=== PATIENT | female | born 1950 | race Caucasian/White ===

== ENCOUNTER → 2019-07-13 | Outpatient (CLI) | payer MEDICARE ==
--- NOTE | 2019-07-14 11:22 | CT ---
EXAMINATION TYPE: CT abdomen pelvis w con DATE OF EXAM: 07/13/2019 COMPARISON: 06/06/2010 INDICATION: Abdominal pain DLP: 1574 mGycm, Automated exposure control for dose reduction was used. CONTRAST: 100 mL of Isovue 300. Study performed with Oral Contrast TECHNIQUE: Axial images were obtained from above the diaphragm to the pubic rami in the axial plane a t 5 mm thick sections. Reconstructed images are reviewed on the computer in the coronal plane. FINDINGS: Limited CT sections are obtained the lung bases. The lung bases are clear. CT ABDOMEN: Liver: Some mild fatty infiltration of liver medially present. No discrete masses or cysts are eviden t. Spleen: Normal Pancreas: Normal Adrenal glands: The adrenal glands are normal. Gallbladder: Normal Kidneys: No masses are evident. No hydronephrosis is present. No cysts are present. Delayed images were obtained through the kidneys, which remain unremarkable. Aorta: Vascular calcification is within the aorta. Inferior vena cava: Normal. CT PELVIS: Loops of bowel within the abdomen and pelvis are normal. There are loops of bowel which are incom pletely distended or lack oral contrast limiting their evaluation. Appendix: Normal as visualized. Urinary bladder: Normal. Genitourinary structures: Uterus appears normal. There is a surgical clip adjacent to the right fall opian tube. No free fluid is present. Osseous structures: There may be some lucency within the left pedicle and posterior lateral vertebral body of T11. Consider correlation with bone scan. IMPRESSIONS: 1. Some left pedicle lucency at T11. Correlate with bone scan findings. 2. No suspicious abnormality to account for abdominal pain.
== END | disposition home or self-care (01) ==
LOC: RADCTMAIN 14:34
PROVIDERS: ATTEND Family Medicine
DX: R10.84 Generalized abdominal pain (principal)
CPT/HCPCS: 82565; 84520; 74177; 36415; Q9967

== ENCOUNTER → 2019-11-16 | Outpatient (CLI) | payer MEDICARE ==
[~2019-11-16] MED LIST: REGADENOSON 0.4 MG/5 ML SYRINGE IV ONE
--- NOTE | 2019-11-16 12:46 | EST ---
EXERCISE STRESS AGE: 69 SEX: F HT: 64" WT: 185 PROTOCOL: Lexiscan Cardiolite Stress Test HEART RATE REST: 57 BLOOD PRESSURE REST: 126/69 MAXIMUM HEART RATE ACHIEVED: 69 MAXIMUM BLOOD PRESSURE: 126/69 INDICATIONS: Chest pain. CLINICAL INFORMATION: Baseline EKG shows sinus rhythm, normal axis, normal intervals. Patient was given intravenous Lexiscan as per protocol. Did not have chest pain or diagnostic ST-segment depression. CONCLUSION: 1. Negative stress test by EKG criteria. 2. Cardiolite portion of the stress test will be reported separately. MMODL / IJN: [id number] /
--- NOTE | 2019-11-16 13:45 | NM ---
EXAMINATION TYPE: NM stress lexiscan cardiolite DATE OF EXAM: 11/16/2019 COMPARISON: NONE HISTORY: Chest pain TECHNIQUE: After the intravenous administration of 10.2 mCi Tc 99m Sestamibi - Cardiolite resting SP ECT images acquired 45 minutes post injection. The patient received 0.4mg Lexiscan, 25.3 mCi Tc 99m Sestamibi - Stress images obtained [address] injection FINDINGS: Review of stress and rest SPECT images demonstrates no a fixed perfusion defect of the septal wall in the mid segment with surrounding yesenia-infarct ischemia as there is a larger defect on stress than re st imaging. Gated analysis shows normal wall motion with an estimated left ventricular ejection frac tion of 70 %. 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
== END | disposition home or self-care (01) ==
LOC: RADNMMAIN 08:20
PROVIDERS: ATTEND Family Medicine
DX: I25.89 Other forms of chronic ischemic heart disease (principal); I21.A9 Other myocardial infarction type; I16.0 Hypertensive urgency
CPT/HCPCS: 93017; 78452; A9500; J2785

== ENCOUNTER → 2020-04-25 | Outpatient (CLI) | payer MEDICARE ==
--- NOTE | 2020-04-29 08:25 | MM ---
Reason for exam: screening (asymptomatic). Last mammogram was performed 3 years and 11 months ago. History: Patient is postmenopausal. Took estrogen for 1 year beginning at age 54. Took progesterone for 1 year beginning at age 54. Physical Findings: A clinical breast exam by your physician is recommended on an annual basis and results should be correlated with mammographic findings. MG 3D Screening Mammo W/Cad Bilateral CC and MLO view(s) were taken. Prior study comparison: May 25, 2016, right breast MG 3d diag mammo w/cad RT. October 04, 2015, right breast MG 3d work up w/cad RT. Finding #1: There is a typically benign circumscribed oval mass in the right breast. Finding #2: There are typically benign vascular, round, skin calcifications in both breasts. No significant changes in finding since May 25, 2016 and October 04, 2015. ASSESSMENT: Benign, BI-RAD 2 RECOMMENDATION: Routine screening mammogram of both breasts in 1 year.
== END | disposition home or self-care (01) ==
LOC: RADMAMWWP 13:59
PROVIDERS: ATTEND Family Medicine
DX: Z12.31 Encounter for screening mammogram for malignant neoplasm of breast (principal)
CPT/HCPCS: 77063; 77067

== ENCOUNTER → 2021-06-25 | Outpatient (CLI) | payer MEDICARE ==
[~2021-06-25] MED LIST changes: -REGADENOSON 0.4 MG/5 ML SYRINGE IV ONE; +REGADENOSON 0.4 MG/5 ML SYRINGE IV PRN
--- NOTE | 2021-06-25 14:21 | EST ---
EXERCISE STRESS AGE: 70 SEX: F HT: 5'4" WT: 185 lbs PROTOCOL: Lexiscan STAGE: NA DURATION OF EXERCISE: 5 minutes HEART RATE REST: 63 BLOOD PRESSURE REST: 127/73 MAXIMUM HEART RATE ACHIEVED: 79 MAXIMUM BLOOD PRESSURE: 129/66 85% MPHR: 129 100% MPHR: 152 METS: NA RESULTS: Baseline EKG revealed normal sinus rhythm with minor nonspecific ST abnormality. With Lexiscan administration, heart rate went up from 63-79 beats per minute. Blood pressure changed from 127/73 to 129/66. The patient had isolated PVCs. EKG remained unremarkable but inconclusive. By EKG criteria, this is an inclusive Lexiscan stress test because of minor resting EKG changes. The nuclear scan results which are more pertinent, will be reported by the radiologist. MMOLIVIAL / IJN: [id number] /
--- NOTE | 2021-06-25 14:34 | NM ---
EXAMINATION TYPE: NM stress lexiscan cardiolite DATE OF EXAM: 06/25/2021 COMPARISON: NONE HISTORY: Chest pain TECHNIQUE: After the intravenous administration of 9.5 mCi Tc 99m Sestamibi - Cardiolite resting SPE CT images acquired 45 minutes post injection. At peak stress 24.9 mCi Tc 99m Sestamibi - Stress images obtained 35 minutes post injection The patient was stressed with 0.4mg Lexiscan. FINDINGS: There is a large defect from the cardiac apex to nearly the cardiac base along the lateral wall. This is evident on the stress images but not evident on the resting images. Polar maps correlate with the SPECT imaging. No fixed defects on Spect images. There is mild dyskinesia along the lateral wall. Ejection fraction is calculated to be 60 % is normal. IMPRESSION: 1. Large stress-induced ischemic change along the lateral wall. Correlate with EKG changes.
== END | disposition home or self-care (01) ==
LOC: RADNMMAIN 08:13
PROVIDERS: ATTEND Family Medicine
DX: I16.0 Hypertensive urgency (principal); R07.89 Other chest pain
CPT/HCPCS: 93017; 78452; A9500; J2785

== ENCOUNTER → 2021-07-02 | Outpatient (CLI) | payer MEDICARE ==
[2021-07-02 12:12] LABS: HGB 13.9 gm/dL (11.4-16.0); MCHC 33.2 g/dL (31.0-37.0); MCV 93.3 fL (80.0-100.0); Mean Platelet Volume 7.5; Platelet Count 201 k/uL (150-450); RDW 12.8 % (11.5-15.5); WBC 8.2 k/uL (3.8-10.6)
[2021-07-02 12:21] LABS: Potassium 4.5 mmol/L (3.5-5.1)
== END | disposition home or self-care (01) ==
LOC: LABPAT 11:24
PROVIDERS: ATTEND Internal Medicine Cardiovascular Disease
DX: Z01.812 Encounter for preprocedural laboratory examination (principal); R06.02 Shortness of breath
CPT/HCPCS: 36415; 80051; 82565; 84520; 85027

== ENCOUNTER 2021-07-07 07:50 | Day surgery (SDC) | payer MEDICARE ==
[2021-07-03 18:04] VITALS: BMI 32.8
[~2021-07-07 07:50] MED LIST changes: +ALPRAZolam 0.25 MG TAB PO PRN; +ALPRAZolam 0.5 MG TAB PO PRN; +ASPIRIN 325 MG TAB PO STA; +ATORVASTATIN 80 MG TAB PO STA; +NITROGLYCERIN SL TABS 0.4 MG TAB SUBLINGUAL PRN; -REGADENOSON 0.4 MG/5 ML SYRINGE IV PRN; +SODIUM CHLORIDE 0.9% 1,000 ML in EMPTY BAG 1 BAG IV SCH
[2021-07-07 08:25] LABS: Glucose,Whole Blood 131 mg/dL (75-99)
[2021-07-07 08:35] VITALS: TEMP 98.3
[2021-07-07] MEDS ORDERED: METOPROLOL TARTRATE 50 MG TAB PO STA (08:36)
[2021-07-07] MEDS ORDERED: ATORVASTATIN 40 MG TAB PO STA (08:36)
[2021-07-07] MEDS ORDERED: LIDOCAINE 1% INJ 10MG/ML (20 ML MDV) ONE (08:40)
[2021-07-07] MEDS ORDERED: VERAPAMIL 2.5 MG/ML 2 ML AMP ONE (09:47)
[2021-07-07] MEDS ORDERED: fentaNYL (PF) 50 MCG/ML 2 ML AMP ONE (09:47)
[2021-07-07] MEDS ORDERED: fentaNYL (PF) 50 MCG/ML 2 ML AMP IVP ONE (09:50)
[2021-07-07] MEDS: MIDAZOLAM 2 MG/2 ML VIAL IVP ONE ×2 (09:50→10:00)
[2021-07-07] MEDS ORDERED: LIDOCAINE 1% INJ 10MG/ML (20 ML MDV) SQ ONE (09:51)
[2021-07-07] MEDS ORDERED: VERAPAMIL SYRINGE (5 MG/10 ML) INTRAARTER ONE (09:57)
[2021-07-07] MEDS ORDERED: HEPARIN SODIUM 1,000 UN/ML (10ML VL) ONE (09:58)
[2021-07-07] MEDS ORDERED: HEPARIN SODIUM 1,000 UN/ML (10ML VL) IV ONE (09:59)
[2021-07-07] MEDS ORDERED: IOPAMIDOL-370 125ML BTL INJ ONE (10:06)
[2021-07-07] MEDS ORDERED: RX INFO: IV CONTRAST WAS GIVEN 1 EACH MISC MISCELLANE PRN (10:21)
[2021-07-07] MEDS ORDERED: SODIUM CHLORIDE 0.9% 1,000 ML IV SCH (10:30)
--- NOTE | 2021-07-07 11:06 | CC ---
CARDIAC CATHETERIZATION REPORT INDICATION: Exertional fatigue and shortness of breath with an abnormal stress test showing ischemia involving lateral wall. PROCEDURE NOTE: After obtaining informed consent, left heart catheterization and coronary angiogram were performed via the right radial artery. Patient tolerated the procedure well without any obvious immediate complications. A TR band was applied at the end of the procedure with the standard care and standard precautions. After the TR band was applied, pulse ox was measured and was documented to be 97%. Patient received verapamil and IV heparin to prevent and thrombosis. FINDINGS: HEMODYNAMICS: Left ventricular end-diastolic pressure is 7 mm. There is no significant gradient across the aortic valve. LEFT VENTRICULOGRAM: Left ventriculogram was not presented. ANGIOGRAPHIC DATA: Left main coronary artery. Left main coronary artery is a normal-sized vessel and is free of stenosis. It divides into left anterior descending coronary artery and circumflex coronary artery. LAD and its branches, circumflex coronary artery and its branches are free of significant stenosis. Right coronary artery is a small nondominant vessel and is free of significant disease. CONCLUSIONS: 1. No significant obstructive CAD. 2. Normal left ventricular end-diastolic pressures. PLAN: I reviewed angiographic data with the patient and told her that her stress test is a false positive stress test and her symptoms are probably noncardiac in origin. Patient will work on risk factor modification. MMODL / IJN: [id number] /
--- NOTE | 2021-07-07 11:09 | LTR ---
July 07, 2021 To: Dr. Blanca Re: Roro Carmen (54) Dear Chris, I performed cardiac catheterization on Roro. A detailed catheterization note is enclosed for your records. In brief, cardiac catheterization revealed normal coronary arteries and normal left ventricular end-diastolic pressure. Her symptoms are probably are non-ischemic in etiology, and stress test is a false-positive stress test. Thank you for giving me the privilege of participating in the care of this pleasant lady. Sincerely, Fransisco Ji M.D. VIBHA / ANDREY: [id number] /
[2021-07-07 14:10] VITALS: BP 100/55; PULSE 64; RESP 16
== END 2021-07-07 14:48 | disposition home or self-care (01) ==
LOC: CATHCVL 07:50
PROVIDERS: ATTEND Internal Medicine Cardiovascular Disease
DX: R94.39 Abnormal result of other cardiovascular function study (principal); Z20.822 Contact with and (suspected) exposure to COVID-19; R06.02 Shortness of breath; R53.83 Other fatigue; E11.9 Type 2 diabetes mellitus without complications; I10 Essential (primary) hypertension; Z82.49 Family history of ischemic heart disease and other diseases of the circulatory system; Z79.899 Other long term (current) drug therapy; Z79.82 Long term (current) use of aspirin; E78.2 Mixed hyperlipidemia; Z79.84 Long term (current) use of oral hypoglycemic drugs
CPT/HCPCS: 93458; 87635; C1894 ×2; C1769; J2250; J2001; J3010; J1644; Q9967

== ENCOUNTER → 2021-09-09 | Outpatient (CLI) | payer MEDICARE ==
--- NOTE | 2021-09-11 14:06 | MM ---
Reason for exam: screening (asymptomatic). Last mammogram was performed 1 year and 4 months ago. History: Patient is postmenopausal. Took estrogen for 1 year beginning at age 54. Took progesterone for 1 year beginning at age 54. Physical Findings: A clinical breast exam by your physician is recommended on an annual basis and results should be correlated with mammographic findings. MG 3D Screening Mammo W/Cad Bilateral CC and MLO view(s) were taken. Prior study comparison: April 25, 2020, bilateral MG 3d screening mammo w/cad. May 25, 2016, right breast MG 3d diag mammo w/cad RT. The breast tissue is heterogeneously dense. This may lower the sensitivity of mammography. No significant changes when compared with prior studies. ASSESSMENT: Benign, BI-RAD 2 RECOMMENDATION: Routine screening mammogram of both breasts in 1 year.
== END | disposition home or self-care (01) ==
LOC: RADMAMWWP 10:52
PROVIDERS: ATTEND Family Medicine
DX: Z12.31 Encounter for screening mammogram for malignant neoplasm of breast (principal); Z78.0 Asymptomatic menopausal state
CPT/HCPCS: 77063; 77067

== ENCOUNTER → 2022-12-10 | Outpatient (CLI) | payer MEDICARE ==
--- NOTE | 2022-12-11 09:04 | MM ---
Reason for Exam: Screening (asymptomatic). Last mammogram was performed 1 year(s) and 3 month(s) ago. Patient History: Menarche at age 16. First Full-Term at age 23. Postmenopausal. Estrogen for 1 year from age 54 until age 55. Progesterone for 1 year from age 54 until age 55. Risk Values: Sandra 5 year model risk: 1.4%. NCI Lifetime model risk: 4.1%. Prior Study Comparison: 05/25/2016 Right Diagnostic Mammogram, [facility]. 04/25/2020 Bilateral Screening Mammogram, [facility]. 09/09/2021 Bilateral Screening Mammogram, [facility]. Tissue Density: The breast tissue is heterogeneously dense. This may lower the sensitivity of mammography. Findings: Analyzed By CAD. There are scattered small benign-appearing round and punctate calcifications bilaterally redemonstrated. Benign-appearing vascular calcification in the right breast is redemonstrated. There is no suspicious new group of microcalcifications or new suspicious mass in either breast. Overall Assessment: Benign, BI-RAD 2 Management: Screening Mammogram of both breasts in 1 year. Some advise bilateral breast ultrasound surveillance in patients with background dense tissue. A clinical breast exam by your physician is recommended on an annual basis and results should be correlated with mammographic findings. Electronically signed and approved by: Jermain Jeronimo M.D.
== END | disposition home or self-care (01) ==
LOC: RADMAMWWP 13:48
PROVIDERS: ATTEND Family Medicine
DX: Z12.31 Encounter for screening mammogram for malignant neoplasm of breast (principal); Z78.0 Asymptomatic menopausal state
CPT/HCPCS: 77063; 77067

== ENCOUNTER → 2023-12-16 | Outpatient (CLI) | payer MEDICARE ==
--- NOTE | 2023-12-16 13:05 | MM ---
Reason for Exam: Screening (asymptomatic). Last mammogram was performed 1 year(s) and 1 month(s) ago. Patient History: Menarche at age 16. First Full-Term at age 23. Postmenopausal. Patient has history of breast feeding. Estrogen for 1 year from age 54 until age 55. Progesterone for 1 year from age 54 until age 55. Risk Values: Sandra 5 year model risk: 1.4%. NCI Lifetime model risk: 4.0%. Prior Study Comparison: 09/23/2015 Bilateral Screening Mammogram, [facility]. 10/04/2015 Right Diagnostic Mammogram, [facility]. 05/25/2016 Right Diagnostic Mammogram, [facility]. 04/25/2020 Bilateral Screening Mammogram, [facility]. 09/09/2021 Bilateral Screening Mammogram, [facility]. 12/10/2022 Bilateral MG 3D screening mammo w/cad, [facility]. Tissue Density: The breasts are heterogeneously dense, which may obscure small masses. Findings: Analyzed By CAD. There is no suspicious group of microcalcifications or new suspicious mass in either breast. Overall Assessment: Benign, BI-RAD 2 Management: Screening Mammogram of both breasts in 1 year. . Patient should continue monthly self-breast exams. A clinical breast exam by your physician is recommended on an annual basis. This exam should not preclude additional follow-up of suspicious palpable abnormalities. Note on Sandra scores and lifetime risk: 1. A Sandra score greater than 3% is considered moderate risk. If this is the case, consider specialist referral to assess eligibility for a risk reducing agent. 2. If overall lifetime risk for the development of breast cancer is 20% or higher, the patient may qualify for future screening with alternating mammogram and breast MRI. Electronically signed and approved by: Vamshi Davies M.D. Radiologis
== END | disposition home or self-care (01) ==
LOC: RADMAMWWP 11:07
PROVIDERS: ATTEND Family Medicine
DX: Z12.31 Encounter for screening mammogram for malignant neoplasm of breast (principal); Z78.0 Asymptomatic menopausal state
CPT/HCPCS: 77063; 77067

== ENCOUNTER → 2024-04-27 | Outpatient (CLI) | payer MEDICARE | END | disposition home or self-care (01) | LOC: LABPRL 14:10 | PROVIDERS: ATTEND Family Medicine | DX: Z00.00 Encounter for general adult medical examination without abnormal findings (principal); E11.9 Type 2 diabetes mellitus without complications; E03.9 Hypothyroidism, unspecified | CPT/HCPCS: 80053; 80061; 83036; 84443; 84481; 85025 ==

== ENCOUNTER → 2024-09-04 | Outpatient (CLI) | payer MEDICARE ==
[2024-09-04 19:35] LABS: Microalbumin Creatinine Ratio <15 mg/g Cr (0-30); Urine Creatinine 81.1 mg/dL (28.0-217.0)
[2024-09-04 19:45] LABS: BUN/Creat Ratio 20.75 Ratio (12.00-20.00); Blood Urea Nitrogen 16.6 mg/dL (9.0-27.0); Chol/HDL Ratio 2.63 Ratio; Glucose 122 mg/dL (70-110); LDL Cholesterol,Calculated 67.3 mg/dL (0.0-131.0)
[2024-09-04 19:46] LABS: ALT 25 U/L (8-44); AST 21 U/L (13-35); Albumin 4.3 g/dL (3.8-4.9); Albumin/Globulin Ratio 1.72 Ratio (1.60-3.17); Alkaline Phosphatase 75 U/L (41-126); Calcium 9.6 mg/dL (8.7-10.3); Carbon Dioxide 27.1 mmol/L (21.6-31.8); Chloride 103 mmol/L (96-109); Globulin 2.5 g/dL (1.6-3.3); Potassium 4.6 mmol/L (3.5-5.5); Sodium 140 mmol/L (135-145); T4, Free (Free Thyroxine) 0.82 ng/dL (0.80-1.80); Total Bilirubin 0.3 mg/dL (0.3-1.2); Total Protein 6.8 g/dL (6.2-8.2)
== END | disposition home or self-care (01) ==
LOC: LABWHC1 12:47
PROVIDERS: ATTEND Internal Medicine
DX: E11.65 Type 2 diabetes mellitus with hyperglycemia (principal); E03.9 Hypothyroidism, unspecified; Z79.4 Long term (current) use of insulin
CPT/HCPCS: 36415; 80053; 80061; 82043; 82570; 83036; 84439; 84443